=== PATIENT | female | born 1955 | race Caucasian/White ===

== ENCOUNTER → 2023-08-03 08:48 | Outpatient (REF) | payer MEDICARE, OTHER, SELFPAY ==
[2023-08-03 10:17] LABS: Hematocrit 42.9 % (37.0-47.0); Hemoglobin 13.8 g/dL (12.0-16.0); Mean Corp Hgb Conc. 32.2 g/dL (33.0-37.0); Mean Corpuscular Hgb 30.5 pg (27.0-31.0); Mean Corpuscular Volume 94.7 fL (81.0-99.0); Mean Platelet Volume 11.6 fL (7.4-10.4); Platelet Count 258 10^3/uL (130-400); Red Blood Cell Count 4.53 10^6/uL (4.20-5.40); Red Cell Dist. Width 14.5 % (11.5-14.5); White Blood Cell Count 5.6 10^3/uL (4.8-10.8)
== END ==
LOC: SDSPAT 08:48
PROVIDERS: ATTENDING PHYSICIAN Specialist; FAMILY PHYSICIAN Internal Medicine
DX: Z01.818 Encounter for other preprocedural examination (principal)
CPT/HCPCS: 36415; 85027; 93005

== ENCOUNTER 2023-08-12 06:12 | Day surgery (SDC) | payer MEDICARE, OTHER, SELFPAY ==
[2023-08-03 09:14] VITALS: BMI 26.9
[2023-08-12 06:52] VITALS: BMI 26.9
[2023-08-12] MEDS: NORMOSOL-R 1000 IV (07:01)
[2023-08-12 07:02] VITALS: BP 140/98
[2023-08-12] MEDS: TYLENOL 1000 MG PO (07:09)
[2023-08-12] MEDS: CELEBREX 200 MG PO (07:09)
[2023-08-12 08:05] VITALS: BP 135/75; BP 140/98
[2023-08-12 08:15] VITALS: BP 109/68
[2023-08-12 08:30] VITALS: BP 126/72
[2023-08-12 09:00] VITALS: BP 121/79
[2023-08-12 09:30] VITALS: BP 132/81
== END 2023-08-12 09:40 | disposition home or self-care (01) ==
LOC: SDS 06:12
PROVIDERS: ATTENDING PHYSICIAN Specialist
DX: S83.231A Complex tear of medial meniscus, current injury, right knee, initial encounter (principal); S83.281A Other tear of lateral meniscus, current injury, right knee, initial encounter; X58.XXXA Exposure to other specified factors, initial encounter; M22.41 Chondromalacia patellae, right knee
CPT/HCPCS: 29880